=== PATIENT | male | born 1945 | race Caucasian/White ===

== ENCOUNTER → 2017-04-12 | Outpatient (CLI) | payer OTHER ==
[~2017-04-12] VITALS: Ht 180.3 cm; Wt 77.7 kg
[~2017-04-12] MED LIST: ACAR100T2 PO; ASPI81TA28 PO; BENA20TA14 PO; CINN500T PO; GLIP-199 PO; INSDGI SC; METF-384 PO; NSP500 PO; OMEG10007 PO
[2017-04-12 09:44] VITALS: Ht 180.3 cm; Wt 77.7 kg
--- NOTE | 2017-04-12 10:47 | PAT Medication Instructions ---
Service Date Apr 12, 2017. Current Home Medication List Acarbose (Precose), 100 MG PO TID Aspirin (Aspirin Ec), 81 MG PO HS Benazepril (Lotensin), 20 MG PO QAM Cinnamon (Cinnamon), 500 MG PO BID Fish Oil (Rosewood-3), 1 CAP PO QAM Glipizide (Glipizide Er), 1 TAB PO BID Insulin Glargine (Lantus), 15 UNITS SC QPM Metformin Hcl (Glucophage), 1,000 MG PO BID Niacin Ext Rel (Niaspan Ext Rel), 1,000 MG PO BID Medication Instructions For Your Scheduled Surgery - Hold the following medications 2 weeks prior to surgery: Cinnamon (Cinnamon), 500 MG PO BID Fish Oil (Rosewood-3), 1 CAP PO QAM - Hold the following medications 24 hours prior to surgery: Niacin Ext Rel (Niaspan Ext Rel), 1,000 MG PO BID--do not take the night before or the morning of surgery - Hold the following medications 48 hours prior to surgery: Metformin Hcl (Glucophage), 1,000 MG PO BID - Hold the following medications the morning of surgery: Glipizide (Glipizide Er), 1 TAB PO BID Benazepril (Lotensin), 20 MG PO QAM Acarbose (Precose), 100 MG PO TID - Take the following medications as scheduled the night before surgery: Glipizide (Glipizide Er), 1 TAB PO BID Insulin Glargine (Lantus), 15 UNITS SC QPM Aspirin (Aspirin Ec), 81 MG PO HS Acarbose (Precose), 100 MG PO TID If you have any questions please call us at [phone] or [phone] or [phone]
[2017-04-12 11:07] LABS: BASO % 0.4 %; BASO ABS # 0.02 K/uL (0-0.2); EOS % 1.3 %; EOS ABS # 0.06 K/uL (0-0.5); HEMOGLOBIN 13.9 g/dL (14.0-18.0); IG# 0.01 K/uL (0.00-0.02); LYMPH % 25.4 %; LYMPH ABS # 1.17 K/uL (1.2-3.4); MEAN CORPUSCULAR HEMOGLOBIN 32.8 pg (25-34); MEAN CORPUSCULAR HGB CONC 35.6 g/dl (32-36); MEAN PLATELET VOLUME 10.9 fL (7.4-10.4); MONO ABS # 0.32 K/uL (0.11-0.59); NEUT % 65.7 %; NEUT ABS # 3.02 K/uL (1.4-6.5); PLATELET COUNT 169 K/uL (130-400); RED CELL DISTRIBUTION WIDTH CV 13.1 % (11.5-14.5); RED CELL DISTRIBUTION WIDTH SD 43.6 fL (36.4-46.3)
[2017-04-12 11:15] LABS: PTT PATIENT 23.6 SECONDS (21.0-31.0)
[2017-04-12 11:20] LABS: HEMOGLOBIN A1C 11.3 % (4.5-5.6)
--- NOTE | 2017-04-12 11:30 | DIAGNOSTIC IMAGING REPORT ---
CHEST 2 VIEWS ROUTINE HISTORY: Preop. COMPARISON: None. FINDINGS: The lungs are clear. Cardiac silhouette is normal in size. No pleural effusions. No pneumothorax. IMPRESSION: No acute process. Electronically signed by: Donnell Stahl M.D. 04/12/2017 11:29 AM Dictated Date/Time: 04/12/2017 11:24 AM
[2017-04-12 11:49] LABS: ALBUMIN 3.6 gm/dl (3.4-5.0); CALCIUM 8.4 mg/dl (8.5-10.1); CREATININE 0.74 mg/dl (0.60-1.40)
--- NOTE | 2017-04-26 08:50 | History and Physical ---
History & Physical Date Apr 26, 2017. Chief Complaint Right knee pain History of Present Illness The patient is a 71 year old male with complaints of right knee pain for several years. He has tried conservative therapy with no relief. He is scheduled for a right total knee arthroplasty. Past Medical/Surgical History PMHx: type 2 diabetes, osteoarthritis, hypertension PSHx: hernia repair Additional History Hepatic Disease: No Endocrine Disorder: Yes Kidney Disease: No Hypertension: Yes Heart Disease: No Bleeding Tendencies: No Infectious Diseases: No Allergies Coded Allergies: No Known Allergies (Unverified , 04/12/17) Home Medications Scheduled Acarbose (Precose), 100 MG PO TID Aspirin (Aspirin Ec), 81 MG PO HS Benazepril (Lotensin), 20 MG PO QAM Cinnamon (Cinnamon), 500 MG PO BID Fish Oil (Exmore-3), 1 CAP PO QAM Glipizide (Glipizide Er), 1 TAB PO BID Insulin Glargine (Lantus), 15 UNITS SC QPM Metformin Hcl (Glucophage), 1,000 MG PO BID Niacin Ext Rel (Niaspan Ext Rel), 1,000 MG PO BID Physical Examination Skin: warm/dry, no rash Eyes: normal inspection, EOMI ENT: normal ENT inspection Head: normocephalic, atraumatic Neck: supple, no adenopathy Respiratory/Chest: lungs clear, normal breath sounds Cardiovascular: regular rate, rhythm Abdomen / GI: normal bowel sounds, non tender Extremities: normal inspection, + pertinent finding (Medial joint line tenderness, liagments intact, ROM and strength within normal limits) Neurologic/Psych: no motor/sensory deficits, alert, oriented x 3 Diagnosis Primary osteoarthritis of right knee Plan of Treatment Patient is scheduled for a right total knee arthroplasty. He has failed conservative therapies and would like to proceed with scheduled procedure. Risks and benefits to surgery were discussed with the patient. He understands these risks and wishes to proceed. All questions were answered to his satisfaction. He will be given Aspirin 81mg twice a day for DVT prophylaxis and would like to go home with OPPT.
--- NOTE | 2017-06-25 12:22 | CODING QUERY MEDICAL NECESSITY ---
CQSUPPORTING DIAGNOSIS NEEDED A supporting diagnosis is required for the test/procedure performed on this patient in order for us to be reimbursed by the patient's insurance. Please provide a supporting diagnosis for the following test/procedure listed below next to the test name along with your signature. *If there is no additional diagnosis for this patient that would support the following test/procedure please document that below next to the test/procedure. Test(s)/Procedure(s) that require a supporting diagnosis: DOS 04/12/17 GLYCATED HEMOGLOBIN TEST Provider Signature: Date: Thank you Audrey Gomez Health Information Management Once completed, please kindly fax back to [phone] For questions please call [phone]
== END | disposition home or self-care (01) ==
LOC: C.LAB 08:00 → EDSTATUS 04-30 15:49
PROVIDERS: ATTEND Orthopaedic Surgery
DX: Z01.810 Encounter for preprocedural cardiovascular examination (principal); Z01.811 Encounter for preprocedural respiratory examination; Z01.812 Encounter for preprocedural laboratory examination; M17.11 Unilateral primary osteoarthritis, right knee; I45.10 Unspecified right bundle-branch block